=== PATIENT | female | born 1995 | race American Indian/Alaskan Native ===

== ENCOUNTER 2019-12-20 00:36 | Emergency (ER) | payer MEDICAID ==
[2019-12-20] MEDS ORDERED: IBUPROFEN 600 MG TAB PO ONE (03:16)
[2019-12-20] MEDS ORDERED: LIDOCAINE-MPF (1%) 10 MG/1 ML VIAL 5 ML INFILTRATI ONE (03:16)
--- NOTE | 2019-12-20 03:41 | Emergency Department Report ---
ED Upper Extremity Inj HPI - General Chief Complaint: Extremity Injury, Upper Stated Complaint: RT THUMB PAIN/SWOLLEN Time Seen by Provider: 12/20/19 03:03 Source: patient Mode of arrival: Ambulatory Limitations: No Limitations - History of Present Illness Initial Comments: 24-year-old -[place] female presents to the emergency room for right nuris mb swelling and pain x3 days. Patient states that she removed her order for short nails recently. Patient is taken nothing for her pain. Patient states that the swelling is at the tip of her thumb where she had artificial nails. She reports that the pain is worse when she hangs her hand down and better with elevating. Patient denies any fever or chills. Patient denies any drainage but does report that it swollen and has a white-greenish area. Patient states the pain is a 10 out of 10 and throbbing aching and burning. MD Complaint: Injury to:: right, finger (Thumb) - Related Data Previous Rx's Medication Instructions Recorded Last Taken Type Doxycycline Hyclate [Doxycycline 100 mg PO Q12HR 10 Days #20 tab 12/20/19 Unknown Rx Hyclate TAB] Ibuprofen [Motrin 600 MG tab] 600 mg PO Q8H PRN #15 tablet 12/20/19 Unknown Rx Allergies Allergy/AdvReac Type Severity Reaction Status Date / Time No Known Allergies Allergy Unverified 12/20/19 00:52 ED Review of Systems ROS: Stated complaint: RT THUMB PAIN/SWOLLEN Other details as noted in HPI ED Past Medical Hx - Past Medical History Previous Medical History?: No - Surgical History Past Surgical History?: No - Social History Smoking Status: Current Every Day Smoker - Medications Home Medications: Home Medications Medication Instructions Recorded Confirmed Last Taken Type Doxycycline Hyclate [Doxycycline 100 mg PO Q12HR 10 Days #20 tab 12/20/19 Unknown Rx Hyclate TAB] Ibuprofen [Motrin 600 MG tab] 600 mg PO Q8H PRN #15 tablet 12/20/19 Unknown Rx ED Physical Exam - General Limitations: No Limitations General appearance: alert, in distress - Head Head exam: Present: atraumatic, normocephalic - Eye Eye exam: Present: normal appearance - ENT ENT exam: Present: mucous membranes moist - Neck Neck exam: Present: normal inspection, full ROM - Expanded Upper Extremity Exam Right Shoulder Exam: Present: normal inspection, full ROM Upper Arm exam: Present: normal inspection, full ROM Elbow exam: Present: normal inspection, full ROM Forearm Wrist exam: Present: normal inspection, full ROM Hand Wrist exam: Present: full ROM, tenderness (Thumb), swelling (Thumb), erythema (Thumb) Vascular: Present: normal capillary refill - Back Exam Back exam: Present: normal inspection, full ROM - Neurological Exam Neurological exam: Present: alert, oriented X3, normal gait - Psychiatric Psychiatric exam: Present: normal affect, normal mood - Skin Skin exam: Present: warm, dry, intact, normal color. Absent: rash - I & D Right Finger Type of Procedure: Simple Site: Right thumb Blade Size: 11 I & D Procedure: betadine prep, sterile drapes applied, sterile dressing applied Progress: Patient tolerated well ED Medical Decision Making - Medical Decision Making 24-year-old -[place] female presents to the emergency room for right thumb swelling and pain x3 days. Patient states that she removed her order for short nails recently. Patient is taken nothing for her pain. Patient states that the swelling is at the tip of her thumb where she had artificial nails. She reports that the pain is worse when she hangs her hand down and better with elevating. Patient denies any fever or chills. Patient denies any drainage but does report that it swollen and has a white-greenish area. Patient states the pain is a 10 out of 10 and throbbing aching and burning. Incision and drain for paronychia. Patient will be placed on antibiotics of doxycycline 100 mg twice a day for 10 days. Patient is instructed to take Tylenol or ibuprofen for pain management. Critical care attestation.: If time is entered above; I have spent that time in minutes in the direct care of this critically ill patient, excluding procedure time. ED Disposition Clinical Impression: Paronychia of finger of right hand Disposition: DC-01 TO HOME OR SELFCARE Is pt being admited?: No Does the pt Need Aspirin: No Condition: Stable Instructions: Paronychia (ED) Additional Instructions: Please complete antibiotics as prescribed. Pain medication as needed. Follow- up with your primary care provider if symptoms get worse. Prescriptions: Doxycycline Hyclate [Doxycycline Hyclate TAB] 100 mg PO Q12HR 10 Days #20 tab Ibuprofen [Motrin 600 MG tab] 600 mg PO Q8H PRN #15 tablet PRN Reason: Pain Referrals: PRIMARY CARE, [Primary Care Provider] - 3-5 Days [facility] [Provider Group] - 3-5 Days
[2019-12-20] MEDS ORDERED: HYDROcodone/ACETAMINOPHEN 7.5-325MG TAB PO ONE (03:49)
[2019-12-20 05:48] VITALS: BP 110/70
== END 2019-12-20 04:34 | disposition home or self-care (01) ==
LOC: ED 00:36
DX: L03.011 Cellulitis of right finger (principal); F17.200 Nicotine dependence, unspecified, uncomplicated; Z79.899 Other long term (current) drug therapy

== ENCOUNTER 2020-03-29 23:32 | Emergency (ER) | payer MEDICAID ==
[2020-03-30 00:36] LABS: Basophils # (Auto) 0.1 K/mm3 (0.0-0.1); Basophils % (Auto) 0.8 % (0.0-1.8); Eosinophils % (Auto) 0.1 % (0.0-4.3); Hematocrit 34.3 % (30.3-42.9); Hemoglobin 11.6 gm/dl (10.1-14.3); Lymphocytes # (Auto) 1.5 K/mm3 (1.2-5.4); Lymphocytes % (Auto) 19.1 % (13.4-35.0); Mean Corpuscular HGB Conc 34 % (30-34); Mean Corpuscular Volume 82 fl (79-97); Monocytes # (Auto) 0.5 K/mm3 (0.0-0.8); Monocytes % (Auto) 6.1 % (0.0-7.3); Platelet Count 258 K/mm3 (140-440); Red Cell Distribution Width 14.7 % (13.2-15.2)
[2020-03-30 00:57] LABS: Alanine Aminotransferase 8 units/L (7-56); Albumin 4.1 g/dL (3.9-5); Blood Urea Nitrogen 6 mg/dL (7-17); Calcium 9.8 mg/dL (8.4-10.2); Hemolysis Index 3
[2020-03-30 01:40] LABS: BUN/Creatinine Ratio 12
[2020-03-30 02:10] LABS: Bilirubin,Urine NEG (Negative); Blood,Urine NEG (Negative); Color,Urine Yellow (Yellow); Mucus,Urine FEW /HPF; Protein,Urine <15 mg/dL mg/dL (Negative); Urobilinogen,Urine < 2.0 mg/dL (<2.0); WBC,Urine < 1.0 /HPF (0.0-6.0)
--- NOTE | 2020-03-30 05:05 | Emergency Department Report ---
ED Abdominal Pain HPI - General Chief Complaint: Abdominal Pain Stated Complaint: POSS PREG BLEEDING CRAMPING Time Seen by Provider: 03/30/20 03:44 Source: patient Mode of arrival: Ambulatory Limitations: No Limitations - History of Present Illness Initial Comments: Patient is a 24-year-old female who presents for bilateral lower abdominal pain and vaginal spotting x2 days. Last menstrual period was 12/20/2019. Patient is G4, P2, A1. Patient states vaginal spotting has resolved however she does have intermittent cramping rated at 4/10. Patient has not seen PEDIATRIC CARDIOLOGIST this . There is been no fever, or chills. There is no abnormal vaginal d ischarge no back pain. There is intermittent morning sickness however patient is tolerating p.o. intake. There are no exacerbating or relieving factors at this time. MD Complaint: abdominal pain - Related Data Previous Rx's Medication Instructions Recorded Last Taken Type Doxycycline Hyclate [Doxycycline 100 mg PO Q12HR 10 Days #20 tab 12/20/19 Unknown Rx Hyclate TAB] Ibuprofen [Motrin 600 MG tab] 600 mg PO Q8H PRN #15 tablet 12/20/19 Unknown Rx Acetaminophen [Acetaminophen TAB] 650 mg PO Q6HR PRN #30 tablet 03/30/20 Unknown Rx Doxylamine Succinate/Vit B6 1 each PO Q8H PRN #30 tablet. 03/30/20 Unknown Rx [Carrie Ramos 10-10 mg Tablet] Allergies Allergy/AdvReac Type Severity Reaction Status Date / Time No Known Allergies Allergy Verified 03/30/20 00:16 ED Review of Systems ROS: Stated complaint: POSS PREG BLEEDING CRAMPING Other details as noted in HPI Constitutional: denies: chills, fever Eyes: denies: eye pain, eye discharge, vision change ENT: denies: ear pain, throat pain Respiratory: no symptoms reported Cardiovascular: denies: chest pain, palpitations Endocrine: no symptoms reported Gastrointestinal: abdominal pain, nausea. denies: vomiting, diarrhea, constipation, melena Genitourinary: denies: urgency, dysuria, frequency, hematuria, discharge Musculoskeletal: denies: back pain, joint swelling, arthralgia Skin: denies: rash, lesions Neurological: as per HPI Psychiatric: as per HPI Hematological/Lymphatic: denies: easy bleeding, easy bruising ED Past Medical Hx - Past Medical History Previous Medical History?: No - Surgical History Past Surgical History?: No - Social History Smoking Status: Never Smoker Substance Use Type: None - Medications Home Medications: Home Medications Medication Instructions Recorded Confirmed Last Taken Type Doxycycline Hyclate [Doxycycline 100 mg PO Q12HR 10 Days #20 tab 12/20/19 Unknown Rx Hyclate TAB] Ibuprofen [Motrin 600 MG tab] 600 mg PO Q8H PRN #15 tablet 12/20/19 Unknown Rx Acetaminophen [Acetaminophen TAB] 650 mg PO Q6HR PRN #30 tablet 03/30/20 Unknown Rx Doxylamine Succinate/Vit B6 1 each PO Q8H PRN #30 tablet. 03/30/20 Unknown Rx [Diclegis Dr 10-10 mg Tablet] ED Physical Exam - General Limitations: No Limitations General appearance: alert, in no apparent distress - Head Head exam: Present: atraumatic, normocephalic - Eye Eye exam: Present: normal appearance, EOMI Pupils: Present: normal accommodation - ENT ENT exam: Present: mucous membranes moist - Neck Neck exam: Present: normal inspection - Respiratory Respiratory exam: Present: normal lung sounds bilaterally. Absent: respiratory distress, wheezes, stridor - Cardiovascular Cardiovascular Exam: Present: regular rate, normal rhythm, normal heart sounds. Absent: systolic murmur, diastolic murmur, rubs, gallop - GI/Abdominal GI/Abdominal exam: Present: soft, normal bowel sounds. Absent: distended, tenderness, guarding, rebound, rigid, bruit, hernia - Rectal Rectal exam: Present: deferred - Extremities Exam Extremities exam: Present: normal inspection, full ROM. Absent: tenderness, pedal edema - Back Exam Back exam: Present: normal inspection, full ROM. Absent: tenderness, CVA tenderness (R), CVA tenderness (L), vertebral tenderness - Neurological Exam Neurological exam: Present: alert, oriented X3, CN II-XII intact, normal gait, reflexes normal - Psychiatric Psychiatric exam: Present: normal affect, normal mood - Skin Skin exam: Present: warm, dry, intact, normal color. Absent: rash ED Course Vital Signs 03/30/20 00:11 Temperature 98.1 F Pulse Rate 86 Respiratory 16 Rate Blood Pressure 113/69 O2 Sat by Pulse 100 Oximetry ED Medical Decision Making - Lab Data Result diagrams: 03/30/20 00:22 03/30/20 00:22 Laboratory Results - last 72 hr 03/30/20 03/30/20 03/30/20 00:22 00:22 00:22 WBC 7.7 RBC 4.20 Hgb 11.6 Hct 34.3 MCV 82 MCH 28 MCHC 34 RDW 14.7 Plt Count 258 Lymph % (Auto) 19.1 Amelia % (Auto) 6.1 Eos % (Auto) 0.1 Baso % (Auto) 0.8 Lymph # (Auto) 1.5 Amelia # (Auto) 0.5 Eos # (Auto) 0.0 Baso # (Auto) 0.1 Seg Neutrophils % 73.9 H Seg Neutrophils # 5.7 Sodium 137 Potassium 3.7 Chloride 100.6 Carbon Dioxide 25 Anion Gap 15 BUN 6 L Creatinine 0.5 L Estimated GFR > 60 BUN/Creatinine Ratio 12 Glucose 67 Calcium 9.8 Total Bilirubin 0.50 AST 10 ALT 8 Alkaline Phosphatase 44 Total Protein 7.7 Albumin 4.1 Albumin/Globulin Ratio 1.1 Lipase 21 HCG, Qual Positive HCG, Quant Urine Color Urine Turbidity Urine pH Ur Specific [place] Urine Protein Urine Glucose (UA) Urine Ketones Urine Blood Urine Nitrite Urine Bilirubin Urine Urobilinogen Ur Leukocyte Esterase Urine WBC (Auto) Urine RBC (Auto) U Epithel Cells (Auto) Urine Mucus 03/30/20 03/30/20 00:22 Unknown WBC RBC Hgb Hct MCV MCH MCHC RDW Plt Count Lymph % (Auto) Amelia % (Auto) Eos % (Auto) Baso % (Auto) Lymph # (Auto) Amelia # (Auto) Eos # (Auto) Baso # (Auto) Seg Neutrophils % Seg Neutrophils # Sodium Potassium Chloride Carbon Dioxide Anion Gap BUN Creatinine Estimated GFR BUN/Creatinine Ratio Glucose Calcium Total Bilirubin AST ALT Alkaline Phosphatase Total Protein Albumin Albumin/Globulin Ratio Lipase HCG, Qual HCG, Quant 35205 H Urine Color Yellow Urine Turbidity Clear Urine pH 6.0 Ur Specific [place] 1.014 Urine Protein <15 mg/dl Urine Glucose (UA) Neg Urine Ketones Neg Urine Blood Neg Urine Nitrite Neg Urine Bilirubin Neg Urine Urobilinogen < 2.0 Ur Leukocyte Esterase Neg Urine WBC (Auto) < 1.0 Urine RBC (Auto) 1.0 U Epithel Cells (Auto) 1.0 Urine Mucus Few Labs 03/30/20 03/30/20 03/30/20 00:22 00:22 00:22 WBC 7.7 RBC 4.20 Hgb 11.6 Hct 34.3 MCV 82 MCH 28 MCHC 34 RDW 14.7 Plt Count 258 Lymph % (Auto) 19.1 Amelia % (Auto) 6.1 Eos % (Auto) 0.1 Baso % (Auto) 0.8 Lymph # (Auto) 1.5 Amelia # (Auto) 0.5 Eos # (Auto) 0.0 Baso # (Auto) 0.1 Seg Neutrophils % 73.9 H Seg Neutrophils # 5.7 Sodium 137 Potassium 3.7 Chloride 100.6 Carbon Dioxide 25 Anion Gap 15 BUN 6 L Creatinine 0.5 L Estimated GFR > 60 BUN/Creatinine Ratio 12 Glucose 67 Calcium 9.8 Total Bilirubin 0.50 AST 10 ALT 8 Alkaline Phosphatase 44 Total Protein 7.7 Albumin 4.1 Albumin/Globulin Ratio 1.1 Lipase 21 HCG, Qual Positive HCG, Quant Urine Color Urine Turbidity Urine pH Ur Specific [place] Urine Protein Urine Glucose (UA) Urine Ketones Urine Blood Urine Nitrite Urine Bilirubin Urine Urobilinogen Ur Leukocyte Esterase Urine WBC (Auto) Urine RBC (Auto) U Epithel Cells (Auto) Urine Mucus Blood Type 03/30/20 03/30/20 03/30/20 00:22 Unknown Unknown WBC RBC Hgb Hct MCV MCH MCHC RDW Plt Count Lymph % (Auto) Amelia % (Auto) Eos % (Auto) Baso % (Auto) Lymph # (Auto) Amelia # (Auto) Eos # (Auto) Baso # (Auto) Seg Neutrophils % Seg Neutrophils # Sodium Potassium Chloride Carbon Dioxide Anion Gap BUN Creatinine Estimated GFR BUN/Creatinine Ratio Glucose Calcium Total Bilirubin AST ALT Alkaline Phosphatase Total Protein Albumin Albumin/Globulin Ratio Lipase HCG, Qual HCG, Quant 47957 H Urine Color Yellow Urine Turbidity Clear Urine pH 6.0 Ur Specific [place] 1.014 Urine Protein <15 mg/dl Urine Glucose (UA) Neg Urine Ketones Neg Urine Blood Neg Urine Nitrite Neg Urine Bilirubin Neg Urine Urobilinogen < 2.0 Ur Leukocyte Esterase Neg Urine WBC (Auto) < 1.0 Urine RBC (Auto) 1.0 U Epithel Cells (Auto) 1.0 Urine Mucus Few Blood Type A POSITIVE - Radiology Data Radiology results: report reviewed, image reviewed Single IUP 12w and 3 days, FHR: 170 bpm, follow up with pcp in 2-3 days, Pelvic Rest, tylenol prn, diclegis prn, pt verbalized agreement and understanding of discharge plan. - Medical Decision Making US OB/transvaginal: Single IUP, 12w and 3 days , HC, ua; normal, cbc: normal, Dx: threatened Miscarriage, Plan: follow up with OBGYN, in 2-3 days, Tylenol prn, diclegis prn, return to ed if symptoms worsen. Critical care attestation.: If time is entered above; I have spent that time in minutes in the direct care of this critically ill patient, excluding procedure time. ED Disposition Clinical Impression: Threatened miscarriage in early , Vaginal bleeding affecting early Disposition: TO HOME OR SELFCARE Is pt being admited?: No Does the pt Need Aspirin: No Condition: Stable Instructions: Abdominal Pain (ED), Vaginal Bleeding During , First Trimester, Threatened Miscarriage, [id number] Prescriptions: Acetaminophen [Acetaminophen TAB] 650 mg PO Q6HR PRN #30 tablet PRN Reason: Pain Doxylamine Succinate/Vit B6 [Diclegis Dr 10-10 mg Tablet] 1 each PO Q8H PRN #30 tablet.dr PRN Reason: nausea and vomiting Referrals: ENRIQUE LEYVA MD [Staff Physician] - 3-5 Days Forms: Work/School Release Form(ED) Time of Disposition: 05:36
--- NOTE | 2020-03-30 05:31 | Ultrasound Report ---
Pelvic Ultrasound HISTORY: vag bleeding pos preg. TECHNIQUE: Grayscale and color imaging performed. COMPARISON: None FINDINGS: Cervix measures 2.6 cm in length. The uterus measures 10.1 x 7.2 x 9.3 cm with endometrial complex measuring 6.8 cm. There is a single intrauterine gestation with crown-rump length of 5.9 cm w hich corresponds with an EGA of 12 weeks and 3 days. Estimated delivery date is 10/09/2020. heart rate is 170 bpm. No pelvic free fluid identified. Anterior position of the placenta. The ovaries are not visualized on this exam. IMPRESSION: Single viable intrauterine gestation as above. Signer Name: Remington Velasco MD Signed: 03/30/2020 5:26 AM Workstation Name: [id number]
[2020-03-30 05:47] VITALS: BP 100/55
== END 2020-03-30 05:45 | disposition home or self-care (01) ==
LOC: ED 23:32
DX: O20.0 Threatened abortion (principal); O20.9 Hemorrhage in early pregnancy, unspecified; Z79.899 Other long term (current) drug therapy; Z3A.01 Less than 8 weeks gestation of pregnancy
CPT/HCPCS: 36415; 76801; 80053; 81001; 83690; 84702; 84703; 85025; 86900; 86901

== ENCOUNTER 2020-11-19 02:42 | Emergency (ER) | payer MEDICAID ==
[2020-11-19 03:19] VITALS: BP 127/85
== END 2020-11-19 10:06 | disposition home or self-care (01) ==
LOC: ED 02:42
DX: S52.591A Other fractures of lower end of right radius, initial encounter for closed fracture (principal); Z79.899 Other long term (current) drug therapy; W06.XXXA Fall from bed, initial encounter; Y93.89 Activity, other specified; Y92.89 Other specified places as the place of occurrence of the external cause; Y99.8 Other external cause status
CPT/HCPCS: 99283

== ENCOUNTER 2021-01-26 22:12 | Emergency (ER) | payer MEDICAID | END 2021-01-26 22:40 | disposition left against medical advice (07) | LOC: ED 22:12 | DX: O26.899 Other specified pregnancy related conditions, unspecified trimester (principal); Z53.21 Procedure and treatment not carried out due to patient leaving prior to being seen by health care provider ==

== ENCOUNTER 2021-07-16 06:03 | Emergency (ER) | payer MEDICAID ==
[2021-07-16 04:53] VITALS: BP 116/74
--- NOTE | 2021-07-16 05:54 | Emergency Department Report ---
<ZAHRA MINOR - Last Filed: 07/16/21 06:27> ED General Adult HPI - General Chief complaint: Syncope Stated complaint: BAD MOUTH PAIN CAUSED FAINTING TWICE Time Seen by Provider: 07/16/21 05:52 - History of Present Illness Initial comments: Over the last several days the patient been complaining of right jaw pain. Food hot and cold make the pain worse and the pain is sharp and moderate to severe. She denies trauma and says it is a bad tooth. She been getting these episodes of pain that are so bad that she feels like she passes out but the reality is she keeps complete cognition during the episodes. She denies nausea vomiting fever chills abdominal pain. She has been experiencing her regular Hussein Fagan contractions and has not had any vaginal gush of fluid or bleeding and reports good movement as usual today. - Related Data Previous Rx's Medication Instructions Recorded Last Taken Type Doxycycline Hyclate [Doxycycline 100 mg PO Q12HR 10 Days #20 tab 12/20/19 Unknown Rx Hyclate TAB] Ibuprofen [Motrin 600 MG tab] 600 mg PO Q8H PRN #15 tablet 12/20/19 Unknown Rx Acetaminophen [Acetaminophen TAB] 650 mg PO Q6HR PRN #30 tablet 03/30/20 Unknown Rx Doxylamine Succinate/Vit B6 1 each PO Q8H PRN #30 tablet. 03/30/20 Unknown Rx [Carrie Ramos 10-10 mg Tablet] Acetaminophen/Codeine [Tylenol 1 tab PO Q8H PRN #10 tab 11/19/20 Unknown Rx /Codeine # 3 tab] Ibuprofen [Motrin 800 MG tab] 800 mg PO Q8HR PRN #20 tablet 11/19/20 Unknown Rx HYDROcodone/APAP 5-325 [[place] 1 each PO Q6HR PRN 2 Days #10 07/16/21 Unknown Rx 5/325] tablet Penicillin V Potassium 500 mg PO QID 10 Days #40 07/16/21 Unknown Rx Allergies Allergy/AdvReac Type Severity Reaction Status Date / Time No Known Allergies Allergy Verified 11/19/20 06:45 ED Review of Systems Comment: All other systems reviewed and negative ED Past Medical Hx - Past Medical History Previous Medical History?: No - Surgical History Past Surgical History?: No - Family History Family history: no significant - Social History Smoking Status: Never Smoker Substance Use Type: None - Medications Home Medications: Home Medications Medication Instructions Recorded Confirmed Last Taken Type Doxycycline Hyclate [Doxycycline 100 mg PO Q12HR 10 Days #20 tab 12/20/19 Unknown Rx Hyclate TAB] Ibuprofen [Motrin 600 MG tab] 600 mg PO Q8H PRN #15 tablet 12/20/19 Unknown Rx Acetaminophen [Acetaminophen TAB] 650 mg PO Q6HR PRN #30 tablet 03/30/20 Unknown Rx Doxylamine Succinate/Vit B6 1 each PO Q8H PRN #30 tablet. 03/30/20 Unknown Rx [Diclegis Dr 10-10 mg Tablet] Acetaminophen/Codeine [Tylenol 1 tab PO Q8H PRN #10 tab 11/19/20 Unknown Rx /Codeine # 3 tab] Ibuprofen [Motrin 800 MG tab] 800 mg PO Q8HR PRN #20 tablet 11/19/20 Unknown Rx HYDROcodone/APAP 5-325 [[place] 1 each PO Q6HR PRN 2 Days #10 07/16/21 Unknown Rx 5/325] tablet Penicillin V Potassium 500 mg PO QID 10 Days #40 07/16/21 Unknown Rx ED Physical Exam - Other Other exam information: Physical Exam Constitutional: General: No acute distress. Appearance: No diaphoresis. HENT: Head: Normocephalic. The patient has tenderness on tooth #34. I do not see a cavity on it but this is the source of her pain. There is no associated abscess but there is some mild localized edema over the area. Eyes: Pupils: Pupils are equal, round, and reactive to light. Neck: Musculoskeletal: Normal range of motion. Cardiovascular: Rate and Rhythm: Normal rate and regular rhythm. Pulses: Intact distal pulses. Heart sounds: Normal heart sounds. No murmur. Pulmonary: Effort: No respiratory distress. Breath sounds: No wheezing or rales. Chest: Chest wall: No tenderness. Abdominal: The abdomen is nontender. The uterus is gravid and consistent with dates and nontender. Musculoskeletal: Normal range of motion. Skin: General: Skin is warm and dry. Neurological: Mental Status: Alert and oriented to person, place, and time. Psychiatric: Mood and Affect: Mood and affect normal. Cognition and Memory: Memory normal. Judgment: Judgment normal. ED Disposition Clinical Impression: contractions, Toothache Disposition: HOME / SELF CARE / HOMELESS Is pt being admited?: No Does the pt Need Aspirin: No Condition: Stable Prescriptions: HYDROcodone/APAP 5-325 [[place] 5/325] 1 each PO Q6HR PRN 2 Days #10 tablet PRN Reason: Pain Penicillin V Potassium 500 mg PO QID 10 Days #40 Referrals: ENRIQUE LEYVA MD [Primary Care Provider] - 3-5 Days Print Language: ARABIC <ZURDO SHORE U - Last Filed: 07/16/21 06:37> ED General Adult HPI - General Source: patient Mode of arrival: Ambulatory Limitations: No Limitations - History of Present Illness Initial comments: patient presents with complaints of intermittent contractions that last ~ 5 minutes x 1 hour. Denies loss of fluid, vaginal bleeding. Endorses movements. Patient is 31 weeks . ED Review of Systems ROS: Stated complaint: BAD MOUTH PAIN CAUSED FAINTING TWICE Other details as noted in HPI Comment: All other systems reviewed and negative Constitutional: denies: chills, fever ED Past Medical Hx - Past Medical History Previous Medical History?: No - Surgical History Past Surgical History?: No - Social History Smoking Status: Unknown if ever smoked ED Physical Exam - General Limitations: No Limitations General appearance: alert, in no apparent distress - Head Head exam: Present: atraumatic, normocephalic - Eye Eye exam: Present: PERRL, EOMI - ENT ENT exam: Present: mucous membranes moist, other (airway patent) - Neck Neck exam: Present: other (supople; no JVD) - Respiratory Respiratory exam: Present: other (good air entry, nml I:E, CTAB, no use oif MARK) - Cardiovascular Cardiovascular Exam: Present: regular rate. Absent: rubs, gallop - GI/Abdominal GI/Abdominal exam: Present: other (gravid with fundus above umbilicus) - Speculum exam: Present: other (deferred to OB) - Extremities Exam Extremities exam: Present: full ROM. Absent: tenderness - Back Exam Back exam: Present: normal inspection. Absent: tenderness - Neurological Exam Neurological exam: Present: alert, oriented X3, CN II-XII intact. Absent: motor sensory deficit - Skin Skin exam: Present: warm, normal color ED Course Vital Signs 07/16/21 04:50 Temperature 98.8 F Pulse Rate 87 Respiratory 18 Rate Blood Pressure 116/74 O2 Sat by Pulse 100 Oximetry Critical care attestation.: If time is entered above; I have spent that time in minutes in the direct care of this critically ill patient, excluding procedure time. ED Disposition Time of Disposition: 05:45 (Patient transferred to labor and delivery)
[2021-07-16] MEDS ORDERED: PENICILLIN V POTASSIUM 250 MG TAB PO ONE (06:34)
[2021-07-16] MEDS ORDERED: HYDROcodone/ACETAMINOPHEN 10-325MG TAB PO ONE (06:35)
--- NOTE | 2021-07-16 16:25 | Electrocardiograph Report ---
[facility] Test Date: 2021-07-16 Test Time: 05:15:03 Pat Name: SUNNI VOGEL Department: Room: 2002 04 Gender: F Robotics Specialist: ROBBIN : 1995 Requested By: ZAHRA MINOR Order Number: [id number] Reading MD: Nicholas Lugo Measurements Intervals [place] Rate: 80 P: 58 [place]: 112 QRS: 73 QRSD: 82 T: 45 QT: 377 QTc: 435 Interpretive Statements Sinus rhythm No previous ECG available for comparison Electronically Signed On 07-16-2021 16:24:46 EDT by Nicholas Lugo
== END 2021-07-16 07:46 | disposition home or self-care (01) ==
LOC: LD 06:03 → ED 06:03 → LD 06:03 → TRG 06:03 → EDSTATUS 06:23 → ED 07:46
DX: K08.89 Other specified disorders of teeth and supporting structures (principal)
CPT/HCPCS: 93005; 99282